=== PATIENT | female | born 1965 | race Caucasian/White ===

== ENCOUNTER 2016-05-05 06:01 | Emergency (ER) | payer SELFPAY ==
[2016-05-05 06:58] LABS: Basophils % (Auto) 0.9 % (0.0-1.8); Eosinophils % (Auto) 11.4 % (0.0-4.3); Hematocrit 35.3 % (30.3-42.9); Mean Corpuscular HGB Conc 31 % (30-34); Mean Corpuscular Volume 76 fl (79-97); Red Blood Count 4.62 M/mm3 (3.65-5.03); Red Cell Distribution Width 14.4 % (13.2-15.2); White Blood Count 9.3 K/mm3 (4.5-11.0)
[2016-05-05 07:01] LABS: Mean Corpuscular Hemoglobin 24 pg (28-32); Platelet Count 239 K/mm3 (140-440)
[2016-05-05 07:11] LABS: Alanine Aminotransferase 28 units/L (7-56); Albumin 3.9 g/dL (3.9-5); Albumin/Globulin Ratio 1.3 %; Alkaline Phosphatase 97 units/L (35-129); Bilirubin,Total 0.3 mg/dL (0.1-1.2); Blood Urea Nitrogen 8 mg/dL (7-17); Calcium 8.4 mg/dL (8.4-10.2); Carbon Dioxide 21 mmol/L (22-30); Chloride 103.3 mmol/L (98-107); Glucose 124 mg/dL (65-100); Lipase 43 units/L (13-60); Potassium 3.4 mmol/L (3.6-5.0); Sodium 137 mmol/L (137-145); Total Protein 6.9 g/dL (6.3-8.2)
[2016-05-05 07:12] LABS: Anion Gap 16 mmol/L
[2016-05-05 07:33] LABS: Bilirubin,Urine NEG (Negative); Blood,Urine MOD (Negative); Ketones,Urine 20 mg/dL (Negative); Leukocyte Esterase,Urine NEG (Negative); Mucus,Urine 2+ /HPF; Nitrite,Urine NEG (Negative); Urobilinogen,Urine < 2.0 mg/dL (<2.0)
[2016-05-05] MEDS ORDERED: ANTIVERT PO ONE ×2 (07:38→09:50)
[2016-05-05] MEDS ORDERED: NACL 0.9% 1000 ML 1,000 ML IV ONE (07:38)
[2016-05-05] MEDS ORDERED: TORADOL IV ONE (07:38)
[2016-05-05] MEDS ORDERED: K-DUR PO ONE (07:39)
--- NOTE | 2016-05-05 08:10 | Cat Scan Report ---
CT HEAD WITHOUT CONTRAST: HISTORY: Headache, syncope, generalized weakness. Serial contiguous axial images were obtained through the cranium. Intravenous contrast material was not administered. The ventricles are normal in size and appearance. There is no mass effect or midline shift. No areas of abnormally increased or decreased attenuation are seen. No mass lesion is seen. The mastoid air cells and visualized portions of the sinuses are normal. IMPRESSION: Cranial CT scan within normal limits.
--- NOTE | 2016-05-05 08:12 | Emergency Department Report ---
- General Chief complaint: Abdominal Pain Stated complaint: HEAD PAIN/BODY NUMBNESS Time Seen by Provider: 05/05/16 06:33 Source: patient Mode of arrival: Wheelchair Limitations: Language Barrier - History of Present Illness Initial comments: 50-year-old female with a past medical history hypertension not currently on medications presents to the hospital complains of generalized weakness, lightheadedness, intermittent headache. Symptoms started this morning. Patient complains of a buzzing sensation in both ears intermittent sharp pains to her head. Positive nausea. Patient also complains of generalized weakness and fatigue and feeling like her lower body is too weak to function. She had vaginal bleeding yesterday. Patient had abdominal pain yesterday that has since improved. No compressive chest pain, shortness breath, blurred vision, or focal weakness/numbness. Severity scale (0 -10): 0 - Related Data Previous Rx's Medication Instructions Recorded Last Taken Type HYDROcodone/APAP 5-325 [[place] 1 each PO Q6HR PRN #20 tablet 05/05/16 Unknown Rx 5/325] Ibuprofen [Motrin] 800 mg PO Q8HR PRN #30 tablet 05/05/16 Unknown Rx Meclizine [Antivert] 25 mg PO TID PRN #20 tablet 05/05/16 Unknown Rx amLODIPine [Norvasc] 5 mg PO DAILY #30 tab 05/05/16 Unknown Rx Allergies Allergy/AdvReac Type Severity Reaction Status Date / Time Penicillins Allergy Unknown Verified 05/05/16 06:21 ED Review of Systems ROS: Stated complaint: HEAD PAIN/BODY NUMBNESS Other details as noted in HPI Comment: All other systems reviewed and negative Other: Constitutional: No fevers chills Eyes: No eye pain visual changes ENT: No ear pain or throat pain Neck: Denies pain Respiratory: Denies cough wheezing shortness of breath Cardiovascular: Denies chest pain, palpitations GI: As per HPI : Denies dysuria Musculoskeletal: Denies back pain Skin: Denies rash, lesions, erythema Neurologic: As per HPI Psychiatric: Denies suicidal ideation, hallucinations ED Past Medical Hx - Past Medical History Previous Medical History?: Yes Hx Hypertension: Yes Additional medical history: appendix ans gall bladder problems, unable to state what - Surgical History Past Surgical History?: No - Social History Smoking Status: Never Smoker Substance Use Type: None - Medications Home Medications: Home Medications Medication Instructions Recorded Confirmed Last Taken Type HYDROcodone/APAP 5-325 [[place] 1 each PO Q6HR PRN #20 tablet 05/05/16 Unknown Rx 5/325] Ibuprofen [Motrin] 800 mg PO Q8HR PRN #30 tablet 05/05/16 Unknown Rx Meclizine [Antivert] 25 mg PO TID PRN #20 tablet 05/05/16 Unknown Rx amLODIPine [Norvasc] 5 mg PO DAILY #30 tab 05/05/16 Unknown Rx ED Physical Exam - General Limitations: Language Barrier - Other Other exam information: General: No limitations, patient is alert in no acute distress Head exam: Atraumatic, normocephalic Eyes exam: Normal appearance, pupils equal reactive to light, extraocular movements intact ENT: Moist mucous membrane, normal oropharynx Neck exam: Normal inspection, full range of motion, no meningismus nontender Respiratory exam: Clear to auscultation bilateral, no wheezes, rales, crackles Cardiovascular: Normal rate and rhythm, normal heart sounds Abdomen: Soft, nondistended, and nontender, with normal bowel sounds, no rebound, or guarding Extremity: Full range of motion normal inspection no deformity Back: Normal Inspection, full range of motion, no tenderness Neurologic: Alert, oriented x3, cranial nerves intact, no motor or sensory deficit, [id number] function intact Psychiatric: normal affect, normal mood Skin: Warm, dry, intact ED Course Vital Signs 05/05/16 05/05/16 05/05/16 06:14 06:58 07:03 Temperature 98.5 F Pulse Rate 90 88 Respiratory 20 18 16 Rate Blood Pressure 165/85 Blood Pressure 153/82 [Left] O2 Sat by Pulse 98 100 99 Oximetry 05/05/16 05/05/16 07:12 07:14 Temperature Pulse Rate 86 91 H Respiratory 16 15 Rate Blood Pressure 150/75 Blood Pressure [Left] O2 Sat by Pulse 99 99 Oximetry - Reevaluation(s) Reevaluation #1: 05/05/16 12:36 After receiving on saline, meclizine, morphine, and Toradol patient states that her dizziness has improved. Marybeth used to clarify translations at this time. Patient does describe a spinning sensation that has improved with ED treatment. 05/05/16 12:36 ED Medical Decision Making - Lab Data Result diagrams: 05/05/16 06:39 05/05/16 06:39 Lab Results 05/05/16 05/05/16 05/05/16 Range/Units 06:39 06:39 06:39 WBC 9.3 (4.5-11.0) K/mm3 RBC 4.62 (3.65-5.03) M/mm3 Hgb 11.0 (10.1-14.3) gm/dl Hct 35.3 (30.3-42.9) % MCV 76 L (79-97) fl MCH 24 L (28-32) pg MCHC 31 (30-34) % RDW 14.4 (13.2-15.2) % Plt Count 239 (140-440) K/mm3 Lymph % (Auto) 27.2 (13.4-35.0) % Curry % (Auto) 9.6 H (0.0-7.3) % Eos % (Auto) 11.4 H (0.0-4.3) % Baso % (Auto) 0.9 (0.0-1.8) % Lymph # 2.5 (1.2-5.4) K/mm3 Curry # 0.9 H (0.0-0.8) K/mm3 Eos # 1.1 H (0.0-0.4) K/mm3 Baso # 0.1 (0.0-0.1) K/mm3 Seg Neutrophils % 50.9 (40.0-70.0) % Seg Neutrophils # 4.7 (1.8-7.7) K/mm3 Sodium 137 (137-145) mmol/L Potassium 3.4 L (3.6-5.0) mmol/L Chloride 103.3 (98-107) mmol/L Carbon Dioxide 21 L (22-30) mmol/L Anion Gap 16 mmol/L BUN 8 (7-17) mg/dL Creatinine 0.5 L (0.7-1.2) mg/dL Estimated GFR > 60 ml/min BUN/Creatinine Ratio 16.00 % Glucose 124 H (65-100) mg/dL Calcium 8.4 (8.4-10.2) mg/dL Magnesium (1.7-2.3) mg/dL Total Bilirubin 0.3 (0.1-1.2) mg/dL AST 26 (5-40) units/L ALT 28 (7-56) units/L Alkaline Phosphatase 97 (35-129) units/L Total Protein 6.9 (6.3-8.2) g/dL Albumin 3.9 (3.9-5) g/dL Albumin/Globulin Ratio 1.3 % Lipase 43 (13-60) units/L HCG, Qual Negative (Negative) Urine Color (Yellow) Urine Turbidity (Clear) Urine pH (5.0-7.0) Ur Specific Norman (1.003-1.030) Urine Protein (Negative) mg/dL Urine Glucose (UA) (Negative) mg/dL Urine Ketones (Negative) mg/dL Urine Blood (Negative) Urine Nitrite (Negative) Urine Bilirubin (Negative) Urine Urobilinogen (<2.0) mg/dL Ur Leukocyte Esterase (Negative) Urine WBC (Auto) (0.0-6.0) /HPF Urine RBC (Auto) (0.0-6.0) /HPF U Epithel Cells (Auto) (0-13.0) /HPF Amorphous Crystals Hyaline Casts /LPF Urine Mucus /HPF Blood Type Antibody Screen 05/05/16 05/05/16 05/05/16 Range/Units 06:39 06:39 06:57 WBC (4.5-11.0) K/mm3 RBC (3.65-5.03) M/mm3 Hgb (10.1-14.3) gm/dl Hct (30.3-42.9) % MCV (79-97) fl MCH (28-32) pg MCHC (30-34) % RDW (13.2-15.2) % Plt Count (140-440) K/mm3 Lymph % (Auto) (13.4-35.0) % Curry % (Auto) (0.0-7.3) % Eos % (Auto) (0.0-4.3) % Baso % (Auto) (0.0-1.8) % Lymph # (1.2-5.4) K/mm3 Curry # (0.0-0.8) K/mm3 Eos # (0.0-0.4) K/mm3 Baso # (0.0-0.1) K/mm3 Seg Neutrophils % (40.0-70.0) % Seg Neutrophils # (1.8-7.7) K/mm3 Sodium (137-145) mmol/L Potassium (3.6-5.0) mmol/L Chloride (98-107) mmol/L Carbon Dioxide (22-30) mmol/L Anion Gap mmol/L BUN (7-17) mg/dL Creatinine (0.7-1.2) mg/dL Estimated GFR ml/min BUN/Creatinine Ratio % Glucose (65-100) mg/dL Calcium (8.4-10.2) mg/dL Magnesium 1.9 (1.7-2.3) mg/dL Total Bilirubin (0.1-1.2) mg/dL AST (5-40) units/L ALT (7-56) units/L Alkaline Phosphatase (35-129) units/L Total Protein (6.3-8.2) g/dL Albumin (3.9-5) g/dL Albumin/Globulin Ratio % Lipase (13-60) units/L HCG, Qual (Negative) Urine Color Yellow (Yellow) Urine Turbidity Slightly-cloudy (Clear) Urine pH 5.0 (5.0-7.0) Ur Specific Norman 1.020 (1.003-1.030) Urine Protein 100 mg/dl (Negative) mg/dL Urine Glucose (UA) Neg (Negative) mg/dL Urine Ketones 20 (Negative) mg/dL Urine Blood Mod (Negative) Urine Nitrite Neg (Negative) Urine Bilirubin Neg (Negative) Urine Urobilinogen < 2.0 (<2.0) mg/dL Ur Leukocyte Esterase Neg (Negative) Urine WBC (Auto) 2.0 (0.0-6.0) /HPF Urine RBC (Auto) 3.0 (0.0-6.0) /HPF U Epithel Cells (Auto) 2.0 (0-13.0) /HPF Amorphous Crystals 3+ Hyaline Casts 1 /LPF Urine Mucus 2+ /HPF Blood Type B NEGATIVE Antibody Screen Negative - EKG Data -: EKG Interpreted by Me (sinus rate [address] elevation or T inversion) - Radiology Data Radiology results: report reviewed (CT head no acute findings) - Medical Decision Making Pt will be discharged home with medications for vertigo and encouraged follow- up with her primary care doctor this week or early next week. Lab work, CT, a UA unremarkable. Patient is able to ambulate now that she's been treated - Differential Diagnosis vertigo, anemia, dehydration, intracranial lesion, electrolyte abnormality Critical Care Time: No Critical care attestation.: If time is entered above; I have spent that time in minutes in the direct care of this critically ill patient, excluding procedure time. ED Disposition Clinical Impression: Vertigo Hypertension Qualifiers: Hypertension type: essential hypertension Qualified Code(s): I10 - Essential ( primary) hypertension Disposition: DISCHARGED TO HOME OR SELFCARE Is pt being admited?: No Does the pt Need Aspirin: No Condition: Stable Instructions: Hypertension (ED), Vertigo (ED) Additional Instructions: Follow up with your doctor in 2-3 days. Take meds as prescribed. Return if symptoms worsen. Prescriptions: HYDROcodone/APAP 5-325 [[place] 5/325] 1 each PO Q6HR PRN #20 tablet PRN Reason: Pain Ibuprofen [Motrin] 800 mg PO Q8HR PRN #30 tablet PRN Reason: Pain Meclizine [Antivert] 25 mg PO TID PRN #20 tablet PRN Reason: Vertigo amLODIPine [Norvasc] 5 mg PO DAILY #30 tab Referrals: PRIMARY CARE, [Primary Care Provider] - 2-3 Days Time of Disposition: 12:39
[2016-05-05] MEDS ORDERED: MORPHINE IV ONE (09:50)
[2016-05-05 12:59] VITALS: BP 126/74
== END 2016-05-05 12:59 | disposition home or self-care (01) ==
LOC: ED 06:01
DX: R42 Dizziness and giddiness (principal); I10 Essential (primary) hypertension; R51 Headache; R53.1 Weakness; Z88.0 Allergy status to penicillin
CPT/HCPCS: 36415; 70450; 80053; 81001; 83690; 83735; 84703; 85025; 86850; 86900; 86901; 93005; 93010; 96361; 96374; 96375; 99285; J1885; J2270; J7030